=== PATIENT | female | born 1965 | race Caucasian/White ===

== ENCOUNTER 2022-10-16 12:03 | Inpatient (IN) | payer BC, OTHER ==
[2022-10-16] MEDS ORDERED: ASPIRIN 81 MG PO STA (12:45)
[2022-10-16] MEDS ORDERED: NITROGLYCERIN SL TABS 0.4 MG TAB SUBLINGUAL STA (12:45)
[2022-10-16] MEDS ORDERED: SODIUM CHLORIDE 0.9% 1,000 ML IV STA (12:45)
--- NOTE | 2022-10-16 12:50 | ED ---
Chest Pain HPI - General Chief Complaint: Chest Pain Stated Complaint: chest pain Time Seen by Provider: 10/16/22 12:35 Source: patient, family, RN notes reviewed Mode of arrival: ambulatory Limitations: no limitations - History of Present Illness Initial Comments: 57-year-old female with a history of hypertension was a smoker also history of thyroid disease who is here today with complaints of left sided chest and left arm pain. She states she had a stress echo 3 days ago that she did not pass. She is scheduled for a cardiac cath later in this week but the pain is still there and was concerned that. She states that the chest pain as 5-6/10 severity left arm pain is 7-8/10 severity. The worse with exertion. She denies any overt shortness of breath or cough at this time. She states she has cut back on smoking since last week. MD Complaint: chest pain - Related Data Allergies Allergy/AdvReac Type Severity Reaction Status Date / Time codeine AdvReac Rash/Hives Verified 10/16/22 13:07 latex AdvReac Rash/Hives Verified 10/16/22 13:07 morphine AdvReac Rash/Hives Verified 10/16/22 13:07 Review of Systems ROS Statement: Those systems with pertinent positive or pertinent negative responses have been documented in the HPI. ROS Other: All systems not noted in ROS Statement are negative. EKG Findings - EKG Results: EKG: interpreted by MICHAEL, sinus rhythm (Sinus rhythm rate is 78. Ago 162 QRS duration 78 QT since QTC 373/407 100 T-wave abnormality artifact present) Past Medical History Past Medical History: Chest Pain / Angina, Hyperlipidemia, Thyroid Disorder History of Any Multi-Drug Resistant Organisms: None Reported Past Surgical History: Section, Cholecystectomy, Hysterectomy, Orthopedic Surgery Past Psychological History: No Psychological Hx Reported Smoking Status: Current every day smoker Past Alcohol Use History: None Reported Past Drug Use History: None Reported General Exam - General Exam Comments Initial Comments: This is a well up well-nourished awake alert oriented 4 female Limitations: no limitations General appearance: alert, anxious Head exam: Present: atraumatic, normocephalic, normal inspection Eye exam: Present: normal appearance, PERRL, EOMI. Absent: scleral icterus, conjunctival injection, periorbital swelling ENT exam: Present: normal exam, mucous membranes moist Neck exam: Present: normal inspection, full ROM, other (No stridor JVD or bruits). Absent: tenderness, meningismus, lymphadenopathy Respiratory exam: Present: normal lung sounds bilaterally. Absent: respiratory distress, wheezes, rales, rhonchi, stridor Cardiovascular Exam: Present: regular rate, normal rhythm, normal heart sounds. Absent: systolic murmur, diastolic murmur, rubs, gallop, clicks GI/Abdominal exam: Present: soft, normal bowel sounds. Absent: distended, tenderness, guarding, rebound, rigid Extremities exam: Present: normal inspection, full ROM, normal capillary refill. Absent: tenderness, pedal edema, joint swelling, calf tenderness Back exam: Present: normal inspection Neurological exam: Present: alert, oriented X3, CN II-XII intact Psychiatric exam: Present: normal affect, normal mood Skin exam: Present: warm, dry, intact, normal color. Absent: rash Course Vital Signs 10/16/22 12:24 Temperature 98.1 F Pulse Rate 79 Respiratory 18 Rate Blood Pressure 149/81 O2 Sat by Pulse 96 Oximetry - Reevaluation(s) Reevaluation #1: 10/16/22 13:55 Reevaluation the patient finds this patient's chest pain and left arm pain-free at this time this is after initial nitroglycerin and aspirin being given. Procedures - Smoking Cessation Time Spent Discussing Smoking Cessation w/Patient (Minutes): 3 Chest Pain MDM - MDM I did interpret the chest x-ray negative for acute processes. I did discuss findings with patient family as well as Dr. Ascencio patient be admitted for inpatient evaluation and treatment of chest pain/unstable anginaWas pt. sent in by a medical professional or institution (, PA, [facility], urgent care, hospital, or group home...) When possible be specific @ -No Did you speak to anyone other than the patient for history (EMS, parent, family, police, friend...)? What history was obtained from this source @ -No Did you review nursing and triage notes (agree or disagree)? Why? @ -I reviewed and agree with nursing and triage notes Were old charts reviewed (outside hosp., previous admission, EMS record, old EKG, old radiological studies, urgent care reports/EKG's, group home records)? Report findings @ -No old charts were reviewed Differential Diagnosis (chest pain, altered mental status, abdominal pain women, abdominal pain men, vaginal bleeding, weakness, fever, dyspnea, syncope, headache, dizziness, GI bleed, back pain, seizure, CVA, palpatations, mental health, musculoskeletal)? @ -Chest pain, musculoskeletal pain EKG interpreted by me (3pts min.). @ -As above X-rays interpreted by me (1pt min.). @ -As above CT interpreted by me (1pt min.). @ -None done U/S interpreted by me (1pt. min.). @ -None done What testing was considered but not performed or refused? (CT, X-rays, U/S, labs)? Why? @ -None What meds were considered but not given or refused? Why? @ -None Did you discuss the management of the patient with other professionals (professionals i.e. , PA, [facility], lab, RT, psych nurse, social services aide, senior wind turbine technician, teacher, classifications officer cc/cm, telephonic nurse case manager)? Give summary @ -Dr. Ascencio Was smoking cessation discussed for >3mins.? @ -Yes Was critical care preformed (if so, how long)? @ -He has 31 minutes Were there social determinants of health that impacted care today? How? (Homelessness, low income, unemployed, alcoholism, drug addiction, transportation, low edu. Level, literacy, decrease access to med. care, usp, rehab)? @ -No Was there de-escalation of care discussed even if they declined (Discuss DNR or withdrawal of care, Hospice)? DNR status @ -No What co-morbidities impacted this encounter? (DM, HTN, Smoking, COPD, CAD, Cancer, CVA, ARF, Chemo, Hep., AIDS, mental health diagnosis, sleep apnea, morbid obesity)? @ -Hyperlipidemia, smoking, thyroid disease Was patient admitted / discharged? Hospital course, mention meds given and route, prescriptions, significant lab abnormalities, going to OR and other pertinent info. @ -The patient was admitted for inpatient evaluation and treatment of chest pain suspicious for unstable angina. Cardiology will be consulted. Patient be started on IV nitroglycerin as well as Nitropaste. Undiagnosed new problem with uncertain prognosis? @ -No Drug Therapy requiring intensive monitoring for toxicity (Heparin, Nitro, I nsulin, Cardizem)? @ -IV heparin, Nitropaste Were any procedures done? @ -No Diagnosis/symptom? @ -Acute chest pain, unstable angina Acute, or Chronic, or Acute on Chronic? @ -Acute Uncomplicated (without systemic symptoms) or Complicated (systemic symptoms)? @ -default Side effects of treatment? @ -No Exacerbation, Progression, or Severe Exacerbation? @ -No Poses a threat to life or bodily function? How? (Chest pain, [place], [place], pneumonia, PE, COPD, DKA, ARF, appy, cholecystitis, CVA, Diverticulitis, Homicidal, Suicidal, threat to staff... and all critical care pts) @ -Yes, chest pain, unstable angina Critical Care Time Critical Care Time: Yes Total Critical Care Time: 31 Disposition Clinical Impression: Unstable angina pectoris, Acute chest pain, Smoking Disposition: ADMITTED IP TO THIS [facility] Condition: Stable Referrals: Tish Georges MD [Primary Care Provider] - 1-2 days Decision Date: 10/16/22 Decision Time: 14:00
[2022-10-16 13:24] LABS: Basophils % (A) 1 %; Eosinophils # (A) 0.1 k/uL (0-0.7); Eosinophils % (A) 1 %; HCT 43.7 % (34.0-46.0); HGB 14.7 gm/dL (11.4-16.0); Lymphocytes # (A) 2.1 k/uL (1.0-4.8); Lymphocytes % (A) 34 %; MCH 31.5 pg (25.0-35.0); MCHC 33.7 g/dL (31.0-37.0); MCV 93.3 fL (80.0-100.0); Mean Platelet Volume 7.8; Monocytes # (A) 0.3 k/uL (0-1.0); Monocytes % (A) 5 %; Neutrophils # (A) 3.5 k/uL (1.3-7.7); Neutrophils % (A) 58 %; Platelet Count 271 k/uL (150-450); RBC 4.69 m/uL (3.80-5.40); RDW 12.2 % (11.5-15.5); WBC 6.1 k/uL (3.8-10.6)
[2022-10-16 13:28] LABS: ALT 20 U/L (4-34); African American GFR (CKD) >90 (>60 ml/min/1.73 sqM); Albumin 4.5 g/dL (3.5-5.0); Anion Gap 7 mmol/L; Blood Urea Nitrogen 14 mg/dL (7-17); Calcium 9.4 mg/dL (8.4-10.2); Carbon Dioxide 29 mmol/L (22-30); Chloride 104 mmol/L (98-107); Glucose 98 mg/dL (74-99); Lipase 260 U/L (23-300); Non-African American GFR(CKD) >90 (>60 ml/min/1.73 sqM); Sodium 140 mmol/L (137-145); Total Bilirubin 0.7 mg/dL (0.2-1.3); Total Protein 7.3 g/dL (6.3-8.2)
[2022-10-16 13:31] LABS: AST 26 U/L (14-36); Alkaline Phosphatase 97 U/L (38-126); Magnesium 2.1 mg/dL (1.6-2.3)
--- NOTE | 2022-10-16 13:31 | XR ---
EXAMINATION TYPE: XR chest 2V DATE OF EXAM: 10/16/2022 COMPARISON: None INDICATION: Chest pain left arm pain TECHNIQUE: Frontal and lateral views of the chest are obtained. FINDINGS: The heart size is normal. The pulmonary vasculature is normal. The lungs are clear. IMPRESSION: 1. No acute pulmonary process.
[2022-10-16 13:35] LABS: Potassium 4.1 mmol/L (3.5-5.1)
[2022-10-16 13:35] LABS: INR 0.9 (<1.2); Partial Thromboplastin Time 22.4 sec (22.0-30.0); Prothrombin Time 9.9 sec (9.0-12.0)
[2022-10-16] MEDS ORDERED: HEPARIN SODIUM 1,000 UN/ML (10ML VL) IV ONE (13:54)
[2022-10-16] MEDS ORDERED: NITROGLYCERIN OINT 1 INCH/GM PACKET TOPICAL STA (13:54)
[2022-10-16] MEDS ORDERED: HEPARIN SODIUM 1,000 UN/ML (10ML VL) IV PRN (13:54)
[2022-10-16] MEDS ORDERED: NITROGLYCERIN SL TABS 0.4 MG TAB SUBLINGUAL PRN (14:00)
[2022-10-16] MEDS ORDERED: HEPARIN SOD,PORK IN 0.45% NACL 25,000 UNIT in 0.45% NACL 1 250ML.BAG IV SCH (14:00)
[2022-10-16] MEDS: SODIUM CHLORIDE 0.9% 1,000 ML IV SCH ×2 (14:37→16:16)
[2022-10-16] MEDS: ACETAMINOPHEN TAB 325 MG TAB PO PRN (16:16)
[2022-10-16] MEDS ORDERED: ALBUTEROL HFA INHALER INHALATION PRN (16:29)
[2022-10-16] MEDS: LEVOTHYROXINE 75 MCG TAB PO SCH (20:24)
[2022-10-16] MEDS: ATORVASTATIN 40 MG TAB PO SCH (20:24)
--- NOTE | 2022-10-16 21:37 | P.HPIM ---
History of Present Illness H&P Date: 10/16/22 Chief Complaint: chest pain Patient is a 57-year-old female with a known history of hypertension, hyperlipidemia, hypothyroidism, currently everyday smoker about half pack per day presents to ER with complaints of chest pain. Patient has been having left- sided retrosternal chest pain and radiating to the left arm with 5-6 in severity. Sharp pain. Denies any associated nausea or vomiting. No headache or dizziness or lightheadedness. Denies any cough or sputum production. No fever no chills. She did take nitroglycerin sublingual for about 5 times since last night with relief of symptoms. Patient states that she has not been feeling well for the past few months. Patient initially was admitted to hospital at [facility] on with complaints of chest pain. She was found to have low blood pressure 98/58 as per patient. Patient states that she underwent stress echocardiogram on Sunday. Cardiac catheterization could not be done due to un availability of or. Patient was discharged from the hospital and recommended to follow-up as an outpatient for cardiac catheterization. Since last night she was started having chest pain again and went to hospital this morning. Patient was recommended to go to [facility] for further evaluation by cardiology. Chest x-ray showed no acute pulmonary process. EKG showed sinus rhythm with heart rate 78 and laboratory data showed WBC 6.1 hemoglobin 14.7 and platelets 271 D-dimer 0.35 and sodium 140 potassium 4.1 chloride 104 bicarb is 21 BUN 14 and creatinine 0.61 liver enzymes not elevated magnesium 2.1 and troponin x2 negative and proBNP is 44 and lipase level is 260 Review of Systems Constitutional: Patient denies any fever or chills . no Generalized weakness. Abdomen: Patient denied any nausea or vomiting or abd. pain Cardiovascular: Patient is complaining of chest pain and no shortness of breath. No leg swelling. No palpitations. Respiratory: patient denied any cough . no sputum production. No shortness of breath Neurologic: Patient denied any numbness or tingling headache. Musculoskeletal: Patient denies any complaints of joint swelling or deformity. Skin: Negative Psychiatric: Negative Endocrine: No heat or cold intolerance. No recent weight gain. Genitourinary: No dysuria or hematuria. All other 14 point ROS negative except the above Past Medical History Past Medical History: Chest Pain / Angina, Hyperlipidemia, Thyroid Disorder History of Any Multi-Drug Resistant Organisms: None Reported Past Surgical History: Section, Cholecystectomy, Hysterectomy, Orthopedic Surgery Past Anesthesia/Blood Transfusion Reactions: No Reported Reaction Past Psychological History: No Psychological Hx Reported Smoking Status: Current every day smoker Past Alcohol Use History: None Reported Past Drug Use History: None Reported Additional Drug Use History / Comment(s): pt. smokes less than half a pack of cigs a day - Past Family History Father Family Medical History: Myocardial Infarction (PR) Brother(s) Family Medical History: Cancer Additional Family Medical History / Comment(s): kidney ca Sister(s) Family Medical History: Cancer Additional Family Medical History / Comment(s): breast cancer, addisons disease Occupational Seizure History - Commerical Driving History Currently uses [employer] for employment (including self-employed).: No Medications and Allergies Home Medications Medication Instructions Recorded Confirmed Type Albuterol Sulfate [Ventolin HFA] 2 puff INHALATION RT-Q6H PRN 10/16/22 10/16/22 History Aspirin EC [Ecotrin Low Dose] 162 mg PO HS 10/16/22 10/16/22 History Atorvastatin [Lipitor] 40 mg PO HS 10/16/22 10/16/22 History Levothyroxine Sodium [Synthroid] 75 mcg PO HS 10/16/22 10/16/22 History Metoprolol Succinate (ER) [Toprol 50 mg PO DAILY 10/16/22 10/16/22 History Xl] Nitroglycerin Sl Tabs [Nitrostat] 0.4 mg SUBLINGUAL Q5M PRN 10/16/22 10/16/22 History amLODIPine [Norvasc] 10 mg PO HS 10/16/22 10/16/22 History Allergies Allergy/AdvReac Type Severity Reaction Status Date / Time codeine AdvReac Rash/Hives Verified 10/16/22 14:08 latex AdvReac Rash/Hives Verified 10/16/22 14:08 morphine AdvReac Rash/Hives Verified 10/16/22 14:08 Physical Exam Vitals: Vital Signs Temp Pulse Pulse Resp BP BP Pulse Ox 10/16/22 20:00 97.9 F 78 18 124/78 96 10/16/22 16:00 97.7 F 82 18 127/74 97 10/16/22 14:23 70 16 140/81 97 10/16/22 12:24 98.1 F 79 18 149/81 96 Intake and Output 10/16/22 10/16/22 10/16/22 06:59 14:59 22:59 Intake Total 945.263 Balance 945.263 Intake: Intake, IV Titration 45.263 Amount Heparin Sod,Pork in 0.45% 45.263 NaCl 25,000 unit In 0.45 % NaCl 1 250ml.bag @ 12 UNITS/KG/HR 6.858 mls/hr IV .Q24H [facility] Rx#: [id number] Oral 900 Other: Voiding Method Toilet # Voids 1 Weight 57.153 kg 57.153 kg PHYSICAL EXAMINATION: Patient is lying in the bed comfortably, no acute distress, awake alert and oriented.. HEENT: Normocephalic. Neck is supple. Pupils reactive. Nostrils clear. Oral cavity is moist. Neck reveals no JVD, carotid bruits, or thyromegaly. CHEST EXAMINATION: Trachea is central. Symmetrical expansion. Lung benitez clear to auscultation and percussion. CARDIAC: Normal S1, S2 with no gallops. No murmurs ABDOMEN: Soft. Bowel sounds present. Nontender. No organomegaly. No abdominal bruits. Extremities: reveal no edema. No clubbing or cyanosis Neurologically awake, alert, oriented x3 with well-coordinated movements. No focal deficits noted Skin: No rash or skin lesions. Psychiatric: Coperative. Nonsuicidal, Musculoskeletal: No joint swelling or deformity. Normal range of motion. Results CBC & Chem 7: 10/16/22 13:01 10/16/22 13:02 Labs: Abnormal Lab Results - Last 24 Hours (Table) 10/16/22 Range/Units 19:39 APTT 45.7 H (22.0-30.0) sec Thrombosis Risk Factor Assmnt - DVT/VTE Prophylaxis DVT/VTE Prophylaxis: Pharmacologic Prophylaxis ordered - Choose All That Apply Each Factor Represents 1 point: Age 41-60 years Other Risk Factors: No Other congenital or acquired thrombophilia - If yes, enter type in comment: No Thrombosis Risk Factor Assessment Total Risk Factor Score: 1 Thrombosis Risk Factor Assessment Level: Low Risk Assessment and Plan Assessment: Chest pain relieved with nitroglycerin sublingual. Possible unstable angina. Abnormal stress echocardiogram done on 10/13/2022 at [facility]. Hypertension Hyperlipidemia Hypothyroidism Currently everyday smoker GI and DVT prophylaxis Plan: Patient will be continued on telemetry monitoring. Serial EKG and troponin x2 negative. Patient was started on heparin drip and continue with aspirin and statins. Continue with metoprolol. Cardiology was consulted for further evaluation. Smoking cessation has been counseled extensively. Follow-up closely. Time with Patient: Greater than 30
[2022-10-17] MEDS: ACETAMINOPHEN TAB 325 MG TAB PO PRN (04:28)
[2022-10-17] MEDS: ASPIRIN 325 MG TAB PO SCH (08:54)
[2022-10-17] MEDS: METOPROLOL SUCCINATE (ER) 50 MG TAB.ER.24H PO SCH (08:54)
[2022-10-17 09:09] LABS: Basophils % (A) 1 %; Eosinophils # (A) 0.1 k/uL (0-0.7); Eosinophils % (A) 2 %; HCT 38.8 % (34.0-46.0); HGB 13.1 gm/dL (11.4-16.0); Lymphocytes # (A) 2.5 k/uL (1.0-4.8); Lymphocytes % (A) 47 %; MCH 31.6 pg (25.0-35.0); MCHC 33.7 g/dL (31.0-37.0); MCV 93.6 fL (80.0-100.0); Mean Platelet Volume 7.5; Monocytes # (A) 0.3 k/uL (0-1.0); Monocytes % (A) 6 %; Neutrophils # (A) 2.2 k/uL (1.3-7.7); Neutrophils % (A) 42 %; Platelet Count 248 k/uL (150-450); RBC 4.14 m/uL (3.80-5.40); RDW 12.1 % (11.5-15.5); WBC 5.3 k/uL (3.8-10.6)
[2022-10-17 09:23] LABS: Prothrombin Time 10.4 sec (9.0-12.0)
--- NOTE | 2022-10-17 14:08 | P.CRDCN ---
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 She has a past medical history of hypertension, hyperlipidemia, hypothyroidism, tobacco use and dependence. Patient presented due to left-sided chest pain and left arm pain, pain 5/10 and worsens with exertion. No cough. No shortness of breath. In the emergency center, patient was started on heparin drip, IV fluids status post 1 L and resumed on her home cardiac medications. Records reviewed from [facility]: Echocardiogram mild concentric left hypertrophy with normal systolic function with underlying EF of 55-60%. Grade 1 diastolic dysfunction with pseudonormalization pattern of the mitral inflow. Trace mitral regurgitation. Trace tricuspid regurgitation with right ventricular systolic pressure 33 mmHg. Aortic valve suboptimally visualized. No discrete masses thrombi or vegetations. Holter monitor revealed predominant normal sinus rhythm with average heart rate of 85 bpm. Symptoms of palpitations correlated with sinus rhythm. Transit 0.[address] segment depressions noted during the study. No malignant tachycardia or bradycardia arrhythmias. Patient is an active smoker recently cut back to less than a pack per day. She denies any alcohol use. She states her dad had coronary artery disease. EKG sinus rhythm with no acute ST changes Chest x-ray: No acute process Troponin negative 3. CBC within normal limits. INR 0.9. D-dimer 0.35. CMP within normal limits. Troponin negative 3. TSH 0.739. Home cardiac medications: Amlodipine 10 mg at bedtime, aspirin heart 62 mg at bedtime, Lipitor 40 mg at bedtime, Toprol-XL 50 kg daily, Nitrostat as needed, levothyroxine 75 g daily Review Of Systems: At the time of my evaluation: Constitutional: No fever, no chills. No weakness, fatigue or lethargy. EENT: No headache. No dizziness. Lungs: Reported shortness of breath, cough, no sputum production. No wheezing. Cardiovascular: Reported chest pain, no lower extremity edema. No palpitations. No paroxysmal nocturnal dyspnea. No orthopnea. No lightheadedness or dizziness. No syncopal episodes. Abdominal: No abdominal pain. No nausea, vomiting. No diarrhea. No constipation. No bloody or tarry stools. Genitourinary: No dysuria. No urinary retention. Musculoskeletal: No myalgias. No muscle weakness, no frequent falls. No back pain. No neck pain. Integumentary: No wounds. No rash. No unusual bruising. Neurologic: No aphasia. No facial droop. No change in mentation. No head injury. No headache. Physical examination: Gen: This is a 57-year-old female. She is resting in bed and appears to be comfortable and in no acute distress VS: reviewed HEENT: Head is atraumatic, normocephalic. Pupils equal, round. Sclerae is anicteric. NECK: Supple. No JVD. . LUNGS: Clear to auscultation. No wheezes or rhonchi. No intercostal retractions. HEART: Regular rate and rhythm. No murmur. ABDOMEN: Soft No tenderness. EXTREMITIES: No pedal edema. No calf tenderness. NEUROLOGICAL: Patient is awake, alert and oriented x3. Assessment: Chest pain, acute coronary syndrome ruled out, possible unstable angina with patient self reporting abnormal stress echocardiogram Hypertension Hyperlipidemia Hypothyroidism Tobacco use and dependence Plan: Resume patient's home cardiac medications Discontinue heparin drip Increase activity No need to repeat echocardiogram Further recommendations to follow based upon clinical course Thank you kindly for this consultation. Nurse practitioner note has been reviewed, I agree with documented findings and plan of care. Patient was seen and examined. Past Medical History Past Medical History: Chest Pain / Angina, Hyperlipidemia, Thyroid Disorder History of Any Multi-Drug Resistant Organisms: None Reported Past Surgical History: Section, Cholecystectomy, Hysterectomy, Orthopedic Surgery Past Anesthesia/Blood Transfusion Reactions: No Reported Reaction Past Psychological History: No Psychological Hx Reported Smoking Status: Current every day smoker Past Alcohol Use History: None Reported Past Drug Use History: None Reported Additional Drug Use History / Comment(s): pt. smokes less than half a pack of cigs a day - Past Family History Father Family Medical History: Myocardial Infarction ([place]) Brother(s) Family Medical History: Cancer Additional Family Medical History / Comment(s): kidney ca Sister(s) Family Medical History: Cancer Additional Family Medical History / Comment(s): breast cancer, addisons disease Medications and Allergies Home Medications Medication Instructions Recorded Confirmed Type Albuterol Sulfate [Ventolin HFA] 2 puff INHALATION RT-Q6H PRN 10/16/22 10/16/22 History Aspirin EC [Ecotrin Low Dose] 162 mg PO HS 10/16/22 10/16/22 History Atorvastatin [Lipitor] 40 mg PO HS 10/16/22 10/16/22 History Levothyroxine Sodium [Synthroid] 75 mcg PO HS 10/16/22 10/16/22 History Metoprolol Succinate (ER) [Toprol 50 mg PO DAILY 10/16/22 10/16/22 History Xl] Nitroglycerin Sl Tabs [Nitrostat] 0.4 mg SUBLINGUAL Q5M PRN 10/16/22 10/16/22 History amLODIPine [Norvasc] 10 mg PO HS 10/16/22 10/16/22 History Allergies Allergy/AdvReac Type Severity Reaction Status Date / Time codeine AdvReac Rash/Hives Verified 10/16/22 14:08 latex AdvReac Rash/Hives Verified 10/16/22 14:08 morphine AdvReac Rash/Hives Verified 10/16/22 14:08 Physical Exam Vitals: Vital Signs Temp Pulse Pulse Resp BP BP Pulse Ox 10/17/22 08:39 95 10/17/22 08:00 97.9 F 64 16 123/70 95 10/17/22 03:34 98.0 F 63 18 120/72 95 10/16/22 23:45 98.1 F 66 18 126/66 96 10/16/22 20:00 97.9 F 78 18 124/78 96 10/16/22 16:00 97.7 F 82 18 127/74 97 10/16/22 14:23 70 16 140/81 97 10/16/22 12:24 98.1 F 79 18 149/81 96 Intake and Output 10/16/22 10/17/22 10/17/22 22:59 06:59 14:59 Intake Total 945.263 Balance 945.263 Intake: Intake, IV Titration 45.263 Amount Heparin Sod,Pork in 0.45% 45.263 NaCl 25,000 unit In 0.45 % NaCl 1 250ml.bag @ 12 UNITS/KG/HR 6.858 mls/hr IV .Q24H [facility] Rx#: [id number] Oral 900 Other: Voiding Method Toilet Toilet Toilet # Voids 1 1 1 Weight 57.153 kg Results 10/17/22 08:19 10/16/22 13:02 Cardiac Enzymes 10/16/22 10/16/22 10/16/22 Range/Units 13:01 13:02 16:20 AST 26 (14-36) U/L Troponin I <0.012 <0.012 (0.000-0.034) ng/mL 10/16/22 Range/Units 19:39 AST (14-36) U/L Troponin I <0.012 (0.000-0.034) ng/mL Coagulation 10/16/22 10/16/22 10/17/22 Range/Units 13:01 19:39 08:19 PT 9.9 10.4 (9.0-12.0) sec APTT 22.4 45.7 H (22.0-30.0) sec 10/17/22 Range/Units 08:19 PT (9.0-12.0) sec APTT 42.2 H (22.0-30.0) sec CBC 10/16/22 10/17/22 Range/Units 13:01 08:19 WBC 6.1 5.3 (3.8-10.6) k/uL RBC 4.69 4.14 (3.80-5.40) m/uL Hgb 14.7 13.1 (11.4-16.0) gm/dL Hct 43.7 38.8 (34.0-46.0) % Plt Count 271 248 (150-450) k/uL Comprehensive Metabolic Panel 10/16/22 Range/Units 13:02 Sodium 140 (137-145) mmol/L Potassium 4.1 (3.5-5.1) mmol/L Chloride 104 (98-107) mmol/L Carbon Dioxide 29 (22-30) mmol/L BUN 14 (7-17) mg/dL Creatinine 0.61 (0.52-1.04) mg/dL Glucose 98 (74-99) mg/dL Calcium 9.4 (8.4-10.2) mg/dL AST 26 (14-36) U/L ALT 20 (4-34) U/L Alkaline Phosphatase 97 (38-126) U/L Total Protein 7.3 (6.3-8.2) g/dL Albumin 4.5 (3.5-5.0) g/dL Current Medications Generic Name Dose Route Start Last Admin Trade Name Freq PRN Reason Stop Dose Admin Acetaminophen 650 mg 10/16/22 15:59 10/17/22 04:28 Acetaminophen Tab 325 Mg Tab PO 650 mg Q6HR PRN Administration Fever and/ or Pain Albuterol Sulfate 2 puff 10/16/22 16:29 Albuterol Hfa Inhaler INHALATION RT-Q6H PRN Shortness Of Breath Aspirin 325 mg 10/17/22 09:00 10/17/22 08:54 Aspirin 325 Mg Tab PO 325 mg DAILY [facility] Administration Atorvastatin Calcium 40 mg 10/16/22 21:00 10/16/22 20:24 Atorvastatin 40 Mg Tab PO 40 mg HS [facility] Administration Heparin Sodium (Porcine) 0 unit 10/16/22 13:54 Heparin Sodium 1,000 Un/Ml (10ml Vl) IV PER PROTOCOL PRN Low PTT Protocol Heparin Sodium/Sodium Chloride 250 mls @ 6.858 mls/hr 10/16/22 14:00 10/16/22 20:56 25,000 unit/ Sodium Chloride IV 12 units/kg/hr .Q24H [facility] 6.858 mls/hr Titration Protocol 12 UNITS/KG/HR Sodium Chloride 1,000 mls @ 20 mls/hr 10/16/22 14:00 10/16/22 16:16 Saline 0.9% IV 20 mls/hr .Q24H [facility] Administration Levothyroxine Sodium 75 mcg 10/16/22 21:00 10/16/22 20:24 Levothyroxine 75 Mcg Tab PO 75 mcg HS [facility] Administration Metoprolol Succinate 50 mg 10/17/22 09:00 10/17/22 08:54 Metoprolol Succinate (Er) 50 Mg Tab.Er.24h PO 50 mg DAILY [facility] Administration Nitroglycerin 0.4 mg 10/16/22 14:00 Nitroglycerin Sl Tabs 0.4 Mg Tab SUBLINGUAL Q5M PRN Chest Pain Intake and Output 10/16/22 10/17/22 10/17/22 22:59 06:59 14:59 Intake Total 945.263 Balance 945.263 Intake: Intake, IV Titration 45.263 Amount Heparin Sod,Pork in 0.45% 45.263 NaCl 25,000 unit In 0.45 % NaCl 1 250ml.bag @ 12 UNITS/KG/HR 6.858 mls/hr IV .Q24H [facility] Rx#: [id number] Oral 900 Other: Voiding Method Toilet Toilet Toilet # Voids 1 1 1 Weight 57.153 kg 10/17/22 08:19 10/16/22 13:02
[2022-10-17 15:56] LABS: Chol/HDL Ratio 2.18 Ratio; LDL Cholesterol,Calculated 57.8 mg/dL (0.0-131.0); VLDL Calculation 12.14 mg/dL (5.00-40.00)
[2022-10-17] MEDS: ATORVASTATIN 40 MG TAB PO SCH (20:33)
[2022-10-17] MEDS: LEVOTHYROXINE 75 MCG TAB PO SCH (20:33)
[2022-10-17] MEDS ORDERED: amLODIPine 10 MG TAB PO SCH (21:00)
[2022-10-17 23:04] VITALS: RESP 16
[2022-10-18] MEDS: ACETAMINOPHEN TAB 325 MG TAB PO PRN (00:35)
--- NOTE | 2022-10-18 05:07 | P.PN ---
Subjective Progress Note Date: 10/18/22 Patient is a 57-year-old female with a known history of hypertension, hyperlipidemia, hypothyroidism, currently everyday smoker about half pack per day presents to ER with complaints of chest pain. Patient has been having left- sided retrosternal chest pain and radiating to the left arm with 5-6 in sever ity. Sharp pain. Denies any associated nausea or vomiting. No headache or dizziness or lightheadedness. Denies any cough or sputum production. No fever no chills. She did take nitroglycerin sublingual for about 5 times since last night with relief of symptoms. Patient states that she has not been feeling well for the past few months. Patient initially was admitted to hospital at [facility] on with complaints of chest pain. She was found to have low blood pressure 98/58 as per patient. Patient states that she underwent stress echocardiogram on Sunday. Cardiac catheterization could not be done due to unavailability of or. Patient was discharged from the hospital and recommended to follow-up as an outpatient for cardiac catheterization. Since last night she was started having chest pain again and went to hospital this morning. Patient was recommended to go to [facility] for further evaluation by cardiology. Chest x-ray showed no acute pulmonary process. EKG showed sinus rhythm with heart rate 78 and laboratory data showed WBC 6.1 hemoglobin 14.7 and platelets 271 D-dimer 0.35 and sodium 140 potassium 4.1 chloride 104 bicarb is 21 BUN 14 and creatinine 0.61 liver enzymes not elevated magnesium 2.1 and troponin x2 negative and proBNP is 44 and lipase level is 260 10/17/2022 Patient is seen and evaluated follow-up this morning with cardiology following. Awaiting medical records from [place] patient reports she had an abnormal stress test in the outpatient setting. Medical records obtained and there is only a 2- D echo which shows some ventricular hypertrophy with a normal EF. Cardiology is following and discussing possible stress test or cardiac catheterization once reviewing the echo. Patient does report she has a scheduled cardiac catheterization on at [facility] and has been contemplating leaving here. Patient will be leaving AGAINST MEDICAL ADVICE as cardiology has not cleared the patient as of yet. Patient is currently afebrile continues to report intermittent chest pains that is relieved with nitro. Patient denies shortness of breath or palpitations. Recommend continue telemetry monitoring. Patient had serial troponins drawn which were all negative and cardiology recommending discontinuing IV heparin. Physical exam: Review of systems: Constitutional: No reports of fatigue, fever, or chills Cardiovascular: reports of chest pain intermittently, no palpitations Respiratory: No reports of shortness of breath or cough GI: No reports of nausea, vomiting, or diarrhea : No reports of dysuria or retention Neurovascular: No reports of weakness or numbness All medications have been reviewed Active Medications Acetaminophen (Acetaminophen Tab 325 Mg Tab) 650 mg PO Q6HR PRN PRN Reason: Fever and/ or Pain Last Admin: 10/18/22 00:35 Dose: 650 mg Albuterol Sulfate (Albuterol Hfa Inhaler) 2 puff INHALATION RT-Q6H PRN PRN Reason: Shortness Of Breath Amlodipine Besylate (Amlodipine 10 Mg Tab) 10 mg PO [facility] Last Admin: 10/17/22 20:33 Dose: 10 mg Aspirin (Aspirin 325 Mg Tab) 325 mg PO DAILY [facility] Last Admin: 10/17/22 08:54 Dose: 325 mg Atorvastatin Calcium (Atorvastatin 40 Mg Tab) 40 mg PO [facility] Last Admin: 10/17/22 20:33 Dose: 40 mg Sodium Chloride (Saline 0.9%) 1,000 mls @ 20 mls/hr IV .Q24H [facility] Last Admin: 10/16/22 16:16 Dose: 20 mls/hr Levothyroxine Sodium (Levothyroxine 75 Mcg Tab) 75 mcg PO [facility] Last Admin: 10/17/22 20:33 Dose: 75 mcg Metoprolol Succinate (Metoprolol Succinate (Er) 50 Mg Tab.Er.24h) 50 mg PO [facility] Last Admin: 10/17/22 08:54 Dose: 50 mg Nitroglycerin (Nitroglycerin Sl Tabs 0.4 Mg Tab) 0.4 mg SUBLINGUAL Q5M PRN PRN Reason: Chest Pain Last Admin: 10/18/22 00:30 Dose: 0.4 mg Physical exam: Patient is lying in the bed comfortably, no acute distress, are somewhat frustrated and anxious, awake alert and oriented.. HEENT: Normocephalic. Neck is supple. Pupils reactive. Nostrils clear. Oral cavity is moist. Neck reveals no JVD, carotid bruits, or thyromegaly. CHEST EXAMINATION: Trachea is central. Symmetrical expansion. Lung benitez clear to auscultation and percussion. CARDIAC: Normal S1, S2 with no gallops. No murmurs ABDOMEN: Soft. Bowel sounds present. Nontender. No organomegaly. No abdominal bruits. Extremities: reveal no edema. No clubbing or cyanosis Neurologically awake, alert, oriented x3 with well-coordinated movements. No focal deficits noted Skin: No rash or skin lesions. Psychiatric: Cooperative. Anxious. Non-suicidal, Musculoskeletal: No joint swelling or deformity. Normal range of motion. Assessment: Chest pain relieved with nitroglycerin sublingual. Possible unstable angina. Abnormal echocardiogram done on 10/13/[address] [facility]. Showing mild ventricular hypertrophy with an EF about 55% Hypertension Hyperlipidemia Hypothyroidism Currently everyday smoker GI and DVT prophylaxis Plan: Patient will be continued on telemetry monitoring. Serial EKG and troponin x3 negative. Cardiology is following recommending discontinuing IV heparin and will continue on aspirin and statin as troponins have been negative. Awaiting edical records from [place] and stress testing was never done, an echo that showed some mild ventricular hypertrophy Cardiology following and discuss further about intervention or close observation on telemetry monitoring as patient does have a scheduled cardiac catheterization at [facility] on morning. Patient remains symptomatic chest pain and is using as needed nitro and reports relief with nitro. Will follow-up on repeat labs and discuss further with cardiology about treatment plan moving forward Smoking cessation has been counseled extensively. Follow-up closely. Prognosis is guarded The impression and plan of care has been dictated by Nurse Bar Pra ctitioner as directed. Dr. Sonu MD I have performed a history and examination and MDM of this patient, discussed the same with the dictator, and agree with the dictator's assessment and plan as written ,documented as a scribe. Based on total visit time, I have performed more than 50% of the visit. Objective - Vital Signs Vital signs: Vital Signs Temp 97.8 F 10/17/22 11:35 Pulse 64 10/17/22 11:35 Resp 16 10/17/22 11:35 BP 127/71 10/17/22 11:35 Pulse Ox 95 10/17/22 11:35 FiO2 Intake & Output 10/16/22 10/17/22 10/17/22 18:59 06:59 18:59 Intake Total 900 45.263 94.298 Balance 900 45.263 94.298 Weight 57.153 kg Intake: Intake, IV Titration 45.263 94.298 Amount Heparin Sod,Pork in 0.45% 45.263 94.298 NaCl 25,000 unit In 0.45 % NaCl 1 250ml.bag @ 12 UNITS/KG/HR 6.858 mls/hr IV .Q24H [facility] Rx#: [id number] Oral 900 Other: Voiding Method Toilet Toilet Toilet # Voids 1 1 1 - Labs CBC & Chem 7: 10/17/22 08:19 10/16/22 13:02 Labs: Abnormal Lab Results - Last 24 Hours (Table) 10/16/22 10/17/22 Range/Units 19:39 08:19 APTT 45.7 H 42.2 H (22.0-30.0) sec
[2022-10-18] MEDS: METOPROLOL SUCCINATE (ER) 50 MG TAB.ER.24H PO SCH (08:05)
[2022-10-18] MEDS: ASPIRIN 325 MG TAB PO SCH (08:05)
[2022-10-18 10:18] LABS: Basophils % (A) 1 %; Eosinophils # (A) 0.2 k/uL (0-0.7); Eosinophils % (A) 3 %; HCT 40.5 % (34.0-46.0); Lymphocytes % (A) 33 %; MCHC 34.6 g/dL (31.0-37.0); MCV 92.7 fL (80.0-100.0); Mean Platelet Volume 10.6; Monocytes # (A) 0.5 k/uL (0-1.0); Monocytes % (A) 8 %; Neutrophils # (A) 3.2 k/uL (1.3-7.7); Neutrophils % (A) 53 %; Platelet Count 190 k/uL (150-450); RBC 4.36 m/uL (3.80-5.40); RDW 12.7 % (11.5-15.5); WBC 5.9 k/uL (3.8-10.6)
[2022-10-18 10:26] LABS: African American GFR (CKD) >90 (>60 ml/min/1.73 sqM); Anion Gap 5 mmol/L; Blood Urea Nitrogen 10 mg/dL (7-17); Calcium 9.2 mg/dL (8.4-10.2); Carbon Dioxide 28 mmol/L (22-30); Chloride 106 mmol/L (98-107); Glucose 97 mg/dL (74-99); Magnesium 2.1 mg/dL (1.6-2.3); Non-African American GFR(CKD) >90 (>60 ml/min/1.73 sqM); Potassium 4.1 mmol/L (3.5-5.1); Sodium 139 mmol/L (137-145)
[2022-10-18 11:54] VITALS: BP 135/79; PULSE 69; TEMP 98
--- NOTE | 2022-10-18 12:46 | P.PN ---
Subjective Progress Note Date: 10/18/22 History of present illness: This is a 57-year-old female but does not currently follow with a windlasser, she denies any cardiac history except that on Sunday she underwent a stress echocardiogram which she states she failed and she is scheduled for cardiac catheterization on with [facility]. She has a past medical history of hypertension, hyperlipidemia, hypothyroidism, tobacco use and dependence. Patient presented due to left-sided chest pain and left arm pain, pain 5/10 and worsens with exertion. No cough. No shortness of breath. In the emergency center, patient was started on heparin drip, IV fluids status post 1 L and resumed on her home cardiac medications. Records reviewed from [facility]: Echocardiogram mild concentric left hypertrophy with normal systolic function with underlying EF of 55-60%. Grade 1 diastolic dysfunction with pseudonormalization pattern of the mitral inflow. Trace mitral regurgitation. Trace tricuspid regurgitation with right ventricu lar systolic pressure 33 mmHg. Aortic valve suboptimally visualized. No discrete masses thrombi or vegetations. Holter monitor revealed predominant normal sinus rhythm with average heart rate of 85 bpm. Symptoms of palpitations correlated with sinus rhythm. Transit 0.[address] segment depressions noted during the study. No malignant tachycardia or bradycardia arrhythmias. Patient is an active smoker recently cut back to less than a pack per day. She denies any alcohol use. She states her dad had coronary artery disease. EKG sinus rhythm with no acute ST changes Chest x-ray: No acute process Troponin negative 3. CBC within normal limits. INR 0.9. D-dimer 0.35. CMP within normal limits. Troponin negative 3. TSH 0.739. Home cardiac medications: Amlodipine 10 mg at bedtime, aspirin heart 62 mg at bedtime, Lipitor 40 mg at bedtime, Toprol-XL 50 kg daily, Nitrostat as needed, levothyroxine 75 g daily 10/18 Patient is seen today in follow-up. We were able to obtain some records from [facility] which included echocardiogram which revealed EF of 55-60%, grade 1 diastolic dysfunction, trace mitral regurgitation, trace tricuspid regurgitation with RVSP of 33 mmHg, aortic valve suboptimally visualized. Holter monitor revealed predominant normal sinus rhythm with an average heart rate of 85 bpm. Symptoms of palpitations correlated with sinus rhythm. Transit 0.[address] segment depression noted during the study. No malignant tachycardia or bradycardia arrhythmias. Unfortunately dressed test that was performed on Sunday is still not ready at the time of evaluation this morning. Patient has no chest pain and she reports that she is scheduled for cardiac catheterization tomorrow at [facility]. Physical examination: Gen: This is a 57-year-old female. She is resting in bed and appears to be comfortable and in no acute distress VS: reviewed HEENT: Head is atraumatic, normocephalic. Pupils equal, round. Sclerae is anicteric. NECK: Supple. No JVD. . LUNGS: Clear to auscultation. No wheezes or rhonchi. No intercostal retractions. HEART: Regular rate and rhythm. No murmur. ABDOMEN: Soft No tenderness. EXTREMITIES: No pedal edema. No calf tenderness. NEUROLOGICAL: Patient is awake, alert and oriented x3. Assessment: Chest pain, acute coronary syndrome ruled out, possible unstable angina with patient self reporting abnormal stress echocardiogram Hypertension Hyperlipidemia Hypothyroidism Tobacco use and dependence Plan: Resume patient's home cardiac medications Patient is cleared for discharge from cardiology. Patient follow-up with her windlasser at [facility]. Nurse practitioner note has been reviewed, I agree with documented findings and plan of care. Patient was seen and examined. Objective - Vital Signs Vital signs: Vital Signs Temp 98.3 F 10/18/22 07:49 Pulse 67 10/18/22 07:49 Resp 16 10/18/22 07:49 BP 127/69 10/18/22 07:49 Pulse Ox 95 10/18/22 04:00 FiO2 Intake & Output 10/17/22 10/18/22 10/18/22 18:59 06:59 18:59 Intake Total 94.298 10 10 Balance 94.298 10 10 Intake: IV 10 10 Invasive Line 2 10 10 Intake, IV Titration 94.298 Amount Heparin Sod,Pork in 0.45% 94.298 NaCl 25,000 unit In 0.45 % NaCl 1 250ml.bag @ 12 UNITS/KG/HR 6.858 mls/hr IV .Q24H [facility] Rx#: [id number] Other: Voiding Method Toilet Toilet Toilet # Voids 1 1 - Labs CBC & Chem 7: 10/18/22 09:27 10/18/22 09:27
--- NOTE | 2022-10-20 20:58 | P.DS ---
Providers Date of admission: 10/16/22 14:00 Expected date of discharge: 10/18/22 Attending physician: Luis Enrique Ascencio Consults: 10/16/22 14:00 Consult Physician Urgent Consulting Provider: Fabricio Ngo Consult Reason/Comments: Chest pain, unstable angina Do you want consulting provider notified?: Yes Primary care physician: Tish Georges MD Hospital Course: Final diagnosis Chest pain relieved with nitroglycerin sublingual. Possible unstable angina. Abnormal echocardiogram done on 10/13/2022 at [facility]. Showing mild ventricular hypertrophy with an EF about 55% Hypertension Hyperlipidemia Hypothyroidism Currently everyday smoker GI and DVT prophylaxis Discharge disposition Patient is being discharged in a stable condition with guarded prognosis to home. Patient will follow-up with Dr. Georges in the outpatient setting upon discharge. Patient is to have cardiac catheterization at [facility] on as scheduled. Total time taken is greater than 35 minutes. Hospital course This is a 57-year-old female who was recently admitted with chest pain and being closely monitored. Cardiology evaluating the patient awaiting medical records from [facility] as patient reports she just had a recent stress test with echo and was told it was abnormal. Patient was instructed by her primary care provider to come to the hospital for further evaluation. Patient does have a scheduled appointment with cardiac catheterization at [facility] although thought she could have it done sooner here. Cardiology reviewed the echo and continue to await report of stress test although nothing available. Patient has been cleared by cardiology to follow-up with a medical for catheterization the a.m. close outpatient follow-up with her primary care provider. Patient will like to go home. Please refer to cardiology notes for further HPI. Currently no reports of chest pain, shortness of breath, or palpitations. Patient is afebrile. No reports of nausea or vomiting and patient is tolerating diet. Patient will be discharged home today. Guarded prognosis. Physical exam: Gen: This is a 57-year-old female who is awake, alert and oriented 3, thin built, well-nourished HEENT: Head is atraumatic, normocephalic. Pupils equal, round. Sclerae is anicteric. NECK: Supple. No JVD. No lymphadenopathy. No thyromegaly. LUNGS: Clear to auscultation. No wheezes or rhonchi. No intercostal retractions. HEART: Regular rate and rhythm. No murmur. ABDOMEN: Soft. Bowel sounds are present. No masses. No tenderness. EXTREMITIES: No pedal edema. No calf tenderness. NEUROLOGICAL: Patient is awake, alert and oriented x3. Cranial nerves 2 through 12 are grossly intact. Please refer to medication reconciliation sheet for a list of medications. The impression and plan of care has been dictated by Nia Bhatia, Nurse Practitioner as directed. MD Emma I have performed a history and examination and MDM of this patient, discussed the same with the dictator, and agree with the dictator's assessment and plan as written ,documented as a scribe. Based on total visit time, I have performed more than 50% of the visit. Patient Condition at Discharge: Stable Plan - Discharge Summary Discharge Rx Participant: No New Discharge Prescriptions: New Acetaminophen Tab [Tylenol] 650 mg PO Q6HR PRN tab PRN Reason: Fever And/ Or Pain Continue Metoprolol Succinate (ER) [Toprol XL] 50 mg PO DAILY Aspirin EC [Ecotrin Low Dose] 162 mg PO HS Albuterol Sulfate [Ventolin HFA] 2 puff INHALATION RT-Q6H PRN PRN Reason: Shortness Of Breath Nitroglycerin Sl Tabs [Nitrostat] 0.4 mg SUBLINGUAL Q5M PRN PRN Reason: Chest Pain amLODIPine [Norvasc] 10 mg PO HS Levothyroxine Sodium [Synthroid] 75 mcg PO HS Atorvastatin [Lipitor] 40 mg PO HS Discharge Medication List Albuterol Sulfate [Ventolin HFA] 2 puff INHALATION RT-Q6H PRN 10/16/22 [History] Aspirin EC [Ecotrin Low Dose] 162 mg PO HS 10/16/22 [History] Atorvastatin [Lipitor] 40 mg PO HS 10/16/22 [History] Levothyroxine Sodium [Synthroid] 75 mcg PO HS 10/16/22 [History] Metoprolol Succinate (ER) [Toprol XL] 50 mg PO DAILY 10/16/22 [History] Nitroglycerin Sl Tabs [Nitrostat] 0.4 mg SUBLINGUAL Q5M PRN 10/16/22 [History] amLODIPine [Norvasc] 10 mg PO HS 10/16/22 [History] Acetaminophen Tab [Tylenol] 650 mg PO Q6HR PRN tab 10/18/22 [Rx] Follow up Appointment(s)/Referral(s): Tish Georges MD [Primary Care Provider] - 1-2 days (Please call to schedule follow up appoitment) Patient Instructions/Handouts: Chest Pain (GEN) Activity/Diet/Wound Care/Special Instructions: Patient has cardiac catheterization scheduled at [facility] on morning Activity Limited until follow-up Keep scheduled cardiac catheterization appointment for tomorrow morning Follow-up primary care provider on discharge Follow-up cardiology outpatient continue taking medications as prescribed Discharge Disposition: HOME SELF-CARE
== END 2022-10-18 12:14 | disposition home or self-care (01) | DRG 303 ==
LOC: EC 12:03 → 3SCARD 14:00
PROVIDERS: ADMIT Internal Medicine; ATTEND Internal Medicine
DX: I25.110 Atherosclerotic heart disease of native coronary artery with unstable angina pectoris (principal); E78.5 Hyperlipidemia, unspecified; I10 Essential (primary) hypertension; I08.1 Rheumatic disorders of both mitral and tricuspid valves; E03.9 Hypothyroidism, unspecified; F17.210 Nicotine dependence, cigarettes, uncomplicated; Z79.890 Hormone replacement therapy; Z79.899 Other long term (current) drug therapy; Z90.710 Acquired absence of both cervix and uterus; Z90.49 Acquired absence of other specified parts of digestive tract; Z91.040 Latex allergy status; Z88.5 Allergy status to narcotic agent
CPT/HCPCS: 36415; 71046; 80048; 80053; 80061; 83690; 83735; 83880; 84443; 84484; 85025; 85379; 85610; 85730; 93005; 94760; 96361; 96365; 99291